=== PATIENT | male | born 1985 | race Two or more races ===

== ENCOUNTER 2017-10-31 18:20 | Emergency (ER) | payer SELFPAY ==
[~2017-10-31] VITALS: Ht 162.6 cm; Wt 69.9 kg
--- NOTE | 2017-10-31 19:21 | NUR ---
Patient discharged to home in stable conditon. Written and verbal after care instructions given. Patient verbalizes understanding of instructions.pt walks in steady gait.
== END 2017-10-31 19:23 | disposition home or self-care (01) ==
LOC: ER 18:26
DX: L30.9 Dermatitis, unspecified (principal)
CPT/HCPCS: A4663